=== PATIENT | male | born 1960 | race Caucasian/White ===

== ENCOUNTER 2017-11-27 09:44 | Emergency (ER) | payer OTHER ==
[~2017-11-27] VITALS: Ht 172.7 cm; Wt 77.0 kg
[~2017-11-27 09:44] MED LIST: PROM25SU8 PO; TAB-TAB PO
[2017-11-27 09:54] VITALS: BP 142/81; PULSE 74; RESP 18; TEMP 98.4; O2SAT 98
--- NOTE | 2017-11-27 10:33 | PD ---
HPI Chief Complaint: Injury Time Seen by Provider: 10:14 Travel History International Travel<30 days: No Contact w/Intl Traveler<30days: No Traveled to known affect area: No History of Present Illness HPI Patient comes to the emergency department complaining of right ankle pain that began after tripping over a mat yesterday. Patient reports that he tripped to put a lot of weight on his right ankle after inverting it. Patient reports pain over the lateral aspect of the right ankle without radiation. Describes a sharp stabbing pain. Patient reports taking ibuprofen, ice, Mike wrap, elevating seem to help some however was awoke 4:00 in the morning with the pain getting worse. Pain is worse with walking. Denies any head injury or loss of consciousness. Patient does not want anything for pain at this time. Denies any numbness or tingling. PFSH Past Medical History Heart Rhythm Problems: Yes (WORK UP FOR [employer] ) Social History Alcohol Use: Yes (RARELY) Tobacco Use: No Substance Use: No Allergies-Medications (Allergen,Severity, Reaction): Coded Allergies: No Known Allergies (Verified Adverse Reaction, Unknown, 11/27/17) Reported Meds & Prescriptions Reported Meds & Active Scripts Active No Active Prescriptions or Reported Medications Review of Systems Except as stated in HPI: all other systems reviewed are Neg Physical Exam Narrative GENERAL: Well-developed, well nourished, in no acute distress, and non-ill appearing. SKIN: Focused skin assessment warm and dry. HEAD: Atraumatic. Normocephalic. EYES: Pupils equal and round. EOMI. No scleral icterus. No injection or drainage. ENT: No nasal bleeding or discharge. Mucous membranes pink and moist. NECK: Trachea midline. Supple. No nuclear rigidity. CARDIOVASCULAR: Dorsal pulses 2+, intact, and equal bilaterally. Capillary refill less than 2 seconds. RESPIRATORY: No accessory muscle use. No respiratory distress. MUSCULOSKELETAL: No obvious deformities. No clubbing. No cyanosis. No edema. Decreased range of motion right ankle secondary to pain. Ankle: Neagative anterior draw and Thornton test. Negative Vibha's sign. No laxity noted with passive inversion and eversion of BL ankles. Negative squeeze test. Pulses equal BL distal to injury. Capillary refill less than 2 seconds distal to injury and equal BL. Sensation equal BL 1st web space. FROM of toes distal to injury and equal BL. NV intact distal to injury and equal BL. Dorsal pulses equal BL. Patient reports point tenderness over the medial aspect of the right ankle. No crepitus. NEUROLOGICAL: Awake and alert. No obvious cranial nerve deficits. Motor grossly within normal limits. Normal speech. PSYCHIATRIC: Appropriate mood and affect; insight and judgment normal. Data Data Last Documented VS Vital Signs Date Time Temp Pulse Resp B/P (MAP) Pulse Ox O2 Delivery O2 Flow Rate FiO2 11/27/17 09:54 98.4 74 18 142/81 (101) 98 Orders Orders Ankle, Complete ([id number]) (11/27/17 ) Ed Discharge Order (11/27/17 10:59) Splint Or Brace Apply/Monitor (11/27/17 10:59) [facility] Medical Decision Making Medical Screen Exam Complete: Yes Emergency Medical Condition: Yes Interpretation(s) Last Impressions Ankle X-Ray 11/27/17 0000 Signed Impressions: Service Date/Time: Monday, November 27, 2017 10:24 - CONCLUSION: No acute fracture or dislocation. Spur protruding from the anterior superior aspect of the talus. Alek Gerber MD Differential Diagnosis Fracture, sprain, dislocation, contusion Narrative Course There is no clinical evidence for fracture. There is no clinical evidence to suspect bony injury by exam. Radiographic examination revealed no fracture seen at this time. No obvious ligamental injury or internal derangement is noted at this time. The distal extremity appears neurovascularly intact, without evidence of neurovascular injury nor compartment syndrome. Tendon exam also was intact. The effected limb was splinted. The patient was discharged on pain medication along with sprain and splint care instructions and given warnings for vascular compromise. The patient is to follow up with primary care provider and/or orthopedics. The patient agrees with plan. Patient in no obvious distress upon re-evaluation. All pertinent Radiology result(s) discussed with patient. Patient does not want anything stronger than [id number] medicine for pain. Any questions/concerns in reference to patient diagnosis/condition discussed and clarified prior to patient's discharge. Reinforced sheer importance of close follow up with patient's primary physician or primary care clinic. Instructed patient to return to ED immediately, if symptoms return/worsen. Patient showed understanding of above instructions. Further instructions and recommendations were detailed in discharge paperwork. Patient left without difficulty out of ED at discharge. Diagnosis Primary Impression: Right ankle sprain Qualified Codes: S93.401A - Sprain of unspecified ligament of right ankle, initial encounter Additional Impression: Bone spur Referrals: Chao Lemus MD, Jessica Isabel DPM Patient Instructions: Ankle Sprain (ED), Ankle Stirrup Splint (ED), Crutch Instructions (ED), General Instructions Additional Instructions: Follow-up with your primary care physician, or so, and/or podiatry in 3-5 days for reevaluation. Use [id number] Tylenol and/or ibuprofen as needed for pain. Follow instructions on the packaging. Apply ice to affected area 20 min/ h as needed for pain. Wear ankle stirrup splint for extra support until reevaluated. Use crutches as needed for additional support until reevaluated. Return to the emergency department if symptoms get worse. Scripts No Active Prescriptions or Reported Meds Disposition: 01 DISCHARGE HOME Condition: Stable Jorge Alberto Davenport Nov 27, 2017 10:33
--- NOTE | 2017-11-27 10:45 | RADRPT ---
EXAM DATE/TIME: 11/27/2017 10:24 [facility] COMPARISON: No previous studies available for comparison. INDICATIONS : Right lateral ankle pain post rolling it last night. MEDICAL HISTORY : None. SURGICAL HISTORY : Right knee arthroscopy. ENCOUNTER: Initial ACUITY: 1 day PAIN SCORE: 7/10 LOCATION: Right lateral ankle FINDINGS: No acute fracture or dislocation. The ankle mortise is intact. There is a spur protruding from the an terior superior aspect of the talus. CONCLUSION: No acute fracture or dislocation. Spur protruding from the anterior superior aspect of the talus. Alek Gerber MD on November 27, 2017 at 10:41 Board Certified Radiologist. This report was verified electronically.
== END 2017-11-27 11:36 | disposition home or self-care (01) ==
LOC: PHEFT 09:44
DX: S93.401A Sprain of unspecified ligament of right ankle, initial encounter (principal); M77.9 Enthesopathy, unspecified; W18.40XA Slipping, tripping and stumbling without falling, unspecified, initial encounter
CPT/HCPCS: 73610; 99283; E0113; L1906